=== PATIENT | female | born 1975 | race Two or more races ===

== ENCOUNTER 2017-02-18 10:07 | Emergency (ER) | payer SELFPAY ==
[~2017-02-18] VITALS: Ht 170.2 cm; Wt 63.5 kg
[2017-02-18 10:30] VITALS: BP 139/102
== END 2017-02-18 11:48 | disposition home or self-care (01) ==
LOC: ER 10:07
DX: S62.636A Displaced fracture of distal phalanx of right little finger, initial encounter for closed fracture (principal); X58.XXXA Exposure to other specified factors, initial encounter; Y93.67 Activity, basketball; Y92.89 Other specified places as the place of occurrence of the external cause; Y99.8 Other external cause status; J45.909 Unspecified asthma, uncomplicated
CPT/HCPCS: 29130; 73130